=== PATIENT | female | born 1990 | race Caucasian/White ===

== ENCOUNTER 2018-12-16 13:56 | Outpatient (CLI) ==
[2016-04-24 18:40] VITALS: BMI 26.4
--- NOTE | 2018-12-16 14:23 | CT ---
Exam: CT abdomen pelvis without intravenous contrast. Comparison: None available. Reason for exam: Left flank pain. FINDINGS: No pleural effusion, or focal consolidation in the partially imaged lung bases. Image interpretation is limited by the lack of intravenous contrast. The liver, spleen, adrenal glands, pancreas, and gallbladder appear grossly unremarkable within limit ations of a noncontrasted study. No hydronephrosis, hydroureter or nephrolithiasis is seen in either kidney. Evaluation of the ureters is limited by the lack of intravenous contrast. Cystic structure in the right and left brea pelvis presumably adnexal/ovarian cysts. No intra-abdominal free air or pelvic free fluid. Tampon is seen within the vagina. No suspicious appearing osteoblastic or osteolytic lesions. The appendix appears grossly unremarkable. Mildly prompt appearing lymph nodes are seen within the abdominal mesentery. No focal small bowel dilatation or transition point. Impression: 1. No acute inflammatory findings are seen within the abdomen or pelvis. 2. Nonspecific mildly prominent appearing mesenteric lymph nodes may be physiologic but may also rep resent mesenteritis inflammation or reactivity. 3. No hydronephrosis, hydroureter or nephrolithiasis in either kidney. The ureters are not well see n on the examination secondary to a lack of excreted contrast.
== END 2018-12-16 13:57 | disposition home or self-care (01) ==
LOC: RAD 13:56
PROVIDERS: ATTEND Nurse Practitioner Family
DX: R10.9 Unspecified abdominal pain (principal)
CPT/HCPCS: 74176

== ENCOUNTER 2018-12-26 12:10 | Outpatient (CLI) ==
[2016-04-24 18:40] VITALS: BMI 26.4
== END 2018-12-26 12:11 | disposition home or self-care (01) ==
LOC: RHC-LAB 12:10 → FCC-LAB 12:11
PROVIDERS: ATTEND Nurse Practitioner Family
DX: R30.0 Dysuria (principal); N39.0 Urinary tract infection, site not specified
CPT/HCPCS: 87086

== ENCOUNTER 2019-06-05 11:58 | Outpatient (CLI) ==
[2016-04-24 18:40] VITALS: BMI 26.4
== END 2019-06-05 11:59 | disposition home or self-care (01) ==
LOC: RHC-LAB 11:58 → FCC-LAB 11:59
PROVIDERS: ATTEND Family Medicine
DX: R19.7 Diarrhea, unspecified (principal); R10.9 Unspecified abdominal pain
CPT/HCPCS: 36415; 80053; 83520; 85651; 86038; 86140; 86256